=== PATIENT | female | born 1975 | race Caucasian/White ===

== ENCOUNTER 2017-05-13 18:27 | Emergency (ER) | payer OTHER ==
[2017-05-13 18:39] VITALS: BP 167/107; PULSE 94; TEMP 99.1; BMI 30.1
--- NOTE | 2017-05-13 18:41 | PDOC ---
Rapid Medical Evaluation Time Seen by Provider: 05/13/17 18:36 Medical Evaluation: Allergies Allergy/AdvReac Type Severity Reaction Status Date / Time Pork/Porcine Containing Allergy Swelling Verified 05/14/15 10:46 Products 05/13/17 18:36 I have performed a brief in-person evaluation of this patient. The patient presents with a chief complaint of: pain L flank down to vagina, vaginal bleeding since thursday, vomiting, hx stones, denies pain with urination Pertinent physical exam findings: L cva tenderness I have ordered the following: Upreg, UA, Ucx The patient will proceed to the ED for further evaluation. Discharge Disposition - Diagnosis Flank pain - Referrals - Patient Instructions - Post Discharge Activity
--- NOTE | 2017-05-13 20:32 | PDOC ---
History of Present Illness - General Chief Complaint: Vaginal Bleeding Stated Complaint: VAGINAL BLEEDING Time Seen by Provider: 05/13/17 18:36 History Source: Patient - History of Present Illness Initial Comments: 05/13/17 21:02 42 year old c/o intermittent left flank pain x 1 day. denies abdominal painmild nausea reported. no vomiting. history of kidney stones. patient also reported that she has her menstrual period now with occasional cramps. Past History - Past Medical History Allergies/Adverse Reactions: Allergies Allergy/AdvReac Type Severity Reaction Status Date / Time Pork/Porcine Containing Allergy Swelling Verified 05/13/17 18:39 Products Home Medications: Ambulatory Orders Albuterol Sulfate Inhaler - [Ventolin HFA Inhaler -] 1 - 2 inh PO Q4H #1 inhaler 05/14/15 Azithromycin [Zithromax 250mg Tablets -] 250 mg PO UTDICT #6 tab 05/14/15 Promethazine HCl [Phenergan Plain 6.25 MG/5 ML -] 5 ml PO TID #60 ml 05/14/15 Sulfamethoxazole/Trimethoprim [Bactrim Ds -] 1 tab PO BID #14 tablet 05/13/17 Asthma: Yes COPD: No Diabetes: Yes - Surgical History Abdominal Surgery: Yes - Suicide/Smoking/Psychosocial Hx Smoking History: Never smoked Hx Alcohol Use: Yes (SOCIAL) Drug/Substance Use Hx: No Substance Use Type: None *Physical Exam - Vital Signs Last Vital Signs Temp Pulse Resp BP Pulse Ox 99.1 F 94 H 20 167/107 100 05/13/17 18:36 05/13/17 18:36 05/13/17 18:36 05/13/17 18:36 05/13/17 18:36 - Physical Exam General Appearance: Yes: Appropriately Dressed Respiratory/Chest: positive: Lungs Clear, Normal Breath Sounds Gastrointestinal/Abdominal: positive: Normal Bowel Sounds, Soft Musculoskeletal: positive: CVA Tenderness (L) Extremity: positive: Normal Capillary Refill, Normal Inspection, Normal Range of Motion Integumentary: positive: Normal Color, Dry, Warm Neurologic: positive: Fully Oriented, Alert, Normal Mood/Affect ED Treatment Course - LABORATORY CBC & Chemistry Diagram: 05/13/17 21:14 05/13/17 21:14 Progress Note - Progress Note Progress Note: A: pyelonephritis P; CBC CMP UA: UCX CTAP: *DC/Admit/Observation/Transfer Diagnosis at time of Disposition: Flank pain, Pyelonephritis - Discharge Dispostion Disposition: HOME - Prescriptions Prescriptions: Sulfamethoxazole/Trimethoprim [Bactrim Ds -] 1 tab PO BID #14 tablet - Referrals - Patient Instructions Printed Discharge Instructions: DI for Kidney Infection Additional Instructions: drink plenty of fluids take bactrim as prescribed, follow up with your doctor as soon as possible. return to the ER if symptoms worsen. - Post Discharge Activity
[2017-05-13 20:36] LABS: URINE APPEARANCE CLOUDY; URINE BILIRUBIN NEGATIVE (NEGATIVE); URINE BLOOD 3+ (NEGATIVE); URINE COLOR YELLOW; URINE GLUCOSE (UA) NEGATIVE (NEGATIVE); URINE KETONE NEGATIVE (NEGATIVE); URINE LEUK ESTERASE TRACE (NEGATIVE); URINE NITRITE NEGATIVE (NEGATIVE); URINE UROBILINOGEN NEGATIVE mg/dL (0.2-1.0)
[2017-05-13 20:46] LABS: URINE PROTEIN 1+ (NEGATIVE)
[2017-05-13 20:48] LABS: EPI CELLS RARE /HPF (FEW); URINE MUCUS RARE
[2017-05-13 20:55] LABS: HCG,QUALITATIVE URINE NEGATIVE
[2017-05-13 21:30] LABS: BASO % 0.9 % (0-2.0); EOS % 2.2 % (0-4.5); HEMATOCRIT 38.2 % (32.4-45.2); HEMOGLOBIN 12.2 GM/dL (10.7-15.3); LYMPH % 28.4 % (8-40); MCH 25.4 pg (25.7-33.7); MCHC 32.1 g/dl (32.0-36.0); MEAN CELL VOLUME 79.2 fl (80-96); MEAN PLT VOLUME 7.7 fl (7.5-11.1); MONO % 6.8 % (3.8-10.2); NEUT % 61.7 % (42.8-82.8); PLATELET COUNT 317 K/MM3 (134-434); RBC 4.82 M/mm3 (3.60-5.2); RDW 15.9 % (11.6-15.6); WHITE BLOOD COUNT 8.3 K/mm3 (4.0-10.0)
[2017-05-13 22:00] LABS: ALBUMIN 3.8 g/dl (3.4-5.0); ANION GAP 6 (8-16); BILIRUBIN,TOTAL 0.3 mg/dL (0.2-1.0); BLOOD UREA NITROGEN 7 mg/dL (7-18); CALCIUM 9.2 mg/dL (8.5-10.1); CHLORIDE 106 mmol/L (98-107); CO2 27 mmol/L (21-32); CREATININE 0.7 mg/dL (0.55-1.02); GLUCOSE,RANDOM 109 mg/dL (74-106); POTASSIUM 4.7 mmol/L (3.5-5.1); SGOT/AST 20 U/L (15-37); SGPT/ALT 25 U/L (12-78); SODIUM 139 mmol/L (136-145); TOT PROT 7.9 g/dl (6.4-8.2)
[2017-05-13 22:01] LABS: ALK PHOS 74 U/L (45-117)
[2017-05-13] MEDS ORDERED: SULFAMETHOXAZOLE/TRIMETHOPRIM 800MG/160MG D.S. TABLET PO ONE (23:35)
== END 2017-05-14 01:00 | disposition home or self-care (01) ==
LOC: JER 18:27
DX: N12 Tubulo-interstitial nephritis, not specified as acute or chronic (principal); Z87.442 Personal history of urinary calculi
CPT/HCPCS: 36415; 74176; 80053; 81003; 81015; 84703; 85025; 87086; 99281-25

== ENCOUNTER 2020-05-13 09:20 | Emergency (ER) | payer OTHER ==
[2020-05-13 09:25] VITALS: BMI 31.8
[2020-05-13 10:38] LABS: CHLORIDE 106 mmol/L (98-107); SODIUM 138 mmol/L (136-145)
[2020-05-13 10:40] LABS: ALBUMIN 3.3 g/dl (3.4-5.0); ANION GAP 3 MMOL/L (8-16); CALCIUM 8.8 mg/dL (8.5-10.1); CO2 29 mmol/L (21-32); GLUCOSE,RANDOM 102 mg/dL (74-106)
[2020-05-13 10:41] LABS: BLOOD UREA NITROGEN 7.3 mg/dL (7-18)
[2020-05-13 10:43] LABS: CREATININE 0.7 mg/dL (0.55-1.3); SGPT/ALT 25 U/L (13-61)
[2020-05-13 10:44] LABS: SGOT/AST 19 U/L (15-37)
[2020-05-13 10:45] LABS: BILIRUBIN,TOTAL 0.3 mg/dL (0.2-1)
[2020-05-13 10:46] LABS: ALK PHOS 72 U/L (45-117)
[2020-05-13 10:49] LABS: BASO % 1.1 % (0-2.0); EOS % 3.4 % (0-4.5); HEMATOCRIT 35.6 % (32.4-45.2); HEMOGLOBIN 11.7 GM/dL (10.7-15.3); LYMPH % 27.1 % (8-40); MCH 25.7 pg (25.7-33.7); MCHC 32.9 g/dl (32.0-36.0); MEAN CELL VOLUME 78.1 fl (80-96); MEAN PLT VOLUME 7.8 fl (7.5-11.1); MONO % 7.5 % (3.8-10.2); NEUT % 60.9 % (42.8-82.8); PLATELET COUNT 327 K/MM3 (134-434); RBC 4.55 M/mm3 (3.60-5.2); RDW 17.8 % (11.6-15.6); WHITE BLOOD COUNT 7.5 K/mm3 (4.0-10.0)
[2020-05-13 13:34] VITALS: BP 128/79; PULSE 72; TEMP 98
== END 2020-05-13 13:36 | disposition home or self-care (01) ==
LOC: JER 09:20
DX: J40 Bronchitis, not specified as acute or chronic (principal)
CPT/HCPCS: 36415; 71046-TC-FY; 80053; 82550; 82553; 84484; 85025; 93005; 93010; 99284-25; C9803; U0003

== ENCOUNTER 2020-07-17 06:48 | Emergency (ER) | payer OTHER ==
[2020-07-17] MEDS ORDERED: DIPHTH,PERTUSS(ACELL),TET 0.5 ML DISP.SYRIN IM ONE (07:23)
[2020-07-17 07:30] VITALS: BP 131/82; PULSE 97; TEMP 100; BMI 29.8
== END 2020-07-17 08:00 | disposition home or self-care (01) ==
LOC: JER 06:48
DX: S62.514A Nondisplaced fracture of proximal phalanx of right thumb, initial encounter for closed fracture (principal)
CPT/HCPCS: 73130-TC-RT-FY; 99283-25

== ENCOUNTER 2021-04-16 09:47 | Emergency (ER) | payer OTHER ==
[2021-04-16 10:35] VITALS: BP 143/87; PULSE 84; TEMP 98.8; BMI 32.8
== END 2021-04-16 11:19 | disposition home or self-care (01) ==
LOC: JERFT 09:47
DX: L03.115 Cellulitis of right lower limb (principal)
CPT/HCPCS: 99283-25

== ENCOUNTER 2021-04-17 14:07 | Emergency (ER) | payer OTHER ==
[2021-04-17 14:37] VITALS: BP 143/78; PULSE 95; TEMP 98.2; BMI 32.8
== END 2021-04-17 14:52 | disposition home or self-care (01) ==
LOC: JERFT 14:07
DX: L03.115 Cellulitis of right lower limb (principal)
CPT/HCPCS: 99281-25

== ENCOUNTER 2021-07-09 08:41 | Emergency (ER) | payer OTHER ==
[2021-07-09 09:07] VITALS: BP 116/71; PULSE 90; TEMP 99.4; BMI 31.8
[2021-07-09] MEDS ORDERED: IBUPROFEN 600 MG TABLET (FP) PO ONE (10:00)
[2021-07-09 10:26] LABS: BASO % 0.5 % (0-2.0); EOS % 0.1 % (0-4.5); HEMATOCRIT 43.4 % (32.4-45.2); HEMOGLOBIN 14.8 GM/dL (10.7-15.3); LYMPH % 8.6 % (8-40); MCH 26.4 pg (25.7-33.7); MCHC 34.2 g/dl (32.0-36.0); MEAN CELL VOLUME 77.1 fl (80-96); MEAN PLT VOLUME 7.9 fl (7.5-11.1); MONO % 6.7 % (3.8-10.2); NEUT % 84.1 % (42.8-82.8); PLATELET COUNT 306 10^3/uL (134-434); RBC 5.62 M/mm3 (3.60-5.2); RDW 17.1 % (11.6-15.6); WHITE BLOOD COUNT 12.6 K/mm3 (4.0-10.0)
[2021-07-09 10:55] LABS: CALCIUM 9.9 mg/dL (8.5-10.1)
[2021-07-09 10:56] LABS: BLOOD UREA NITROGEN 5.8 mg/dL (7-18)
[2021-07-09 10:59] LABS: CREATININE 0.9 mg/dL (0.55-1.3)
[2021-07-09 11:01] LABS: BILIRUBIN,TOTAL 0.8 mg/dL (0.2-1); TOT PROT 8.5 g/dl (6.4-8.2)
[2021-07-09 11:20] LABS: EPI CELLS 8 /uL (0-25.1); HYALINE CASTS 16 /uL (0-3.1); PH,URINE 6.5 (5.0-8.0); URINE APPEARANCE CLOUDY; URINE BACTERIA >9,000 /uL (0-1359); URINE BILIRUBIN NEGATIVE (NEGATIVE); URINE COLOR YELLOW; URINE GLUCOSE (UA) 1+ (NEGATIVE); URINE KETONE 1+ (NEGATIVE); URINE LEUK ESTERASE 2+ (NEGATIVE); URINE NITRITE POSITIVE (NEGATIVE); URINE PROTEIN 1+ (NEGATIVE); URINE RBC 28 /uL (0-23.9); URINE WBC 498 /uL (0-25.8)
== END 2021-07-09 11:33 | disposition home or self-care (01) ==
LOC: JER 08:41
DX: N30.00 Acute cystitis without hematuria (principal)
CPT/HCPCS: 36415; 80053; 81003; 85025; 87086; 87186; 99283-25

== ENCOUNTER 2022-08-17 09:14 | Emergency (ER) | payer OTHER ==
[2022-08-17 09:20] VITALS: BP 145/98; PULSE 95; RESP 18; TEMP 98.6; BMI 31.8
[2022-08-17] MEDS ORDERED: IBUPROFEN 400 MG TABLET (FP) PO ONE ×2 (09:48→09:58)
[2022-08-17 11:29] LABS: URINE APPEARANCE CLEAR; URINE BILIRUBIN NEGATIVE (NEGATIVE); URINE COLOR YELLOW; URINE GLUCOSE (UA) 3+ (NEGATIVE); URINE KETONE NEGATIVE (NEGATIVE); URINE LEUK ESTERASE NEGATIVE (NEGATIVE); URINE NITRITE POSITIVE (NEGATIVE); URINE PROTEIN NEGATIVE (NEGATIVE); URINE UROBILINOGEN 0.2 mg/dL (0.2-1.0)
[2022-08-17 11:55] LABS: EPI CELLS 31.4 /uL (0-25.1); URINE RBC 14.3 /uL (0-23.9); URINE WBC MODERATE /uL (0-25.8)
[2022-08-17 11:56] LABS: URINE BACTERIA MANY /uL (0-1359)
== END 2022-08-17 12:53 | disposition home or self-care (01) ==
LOC: JER 09:14
DX: M79.671 Pain in right foot (principal)
CPT/HCPCS: 81003; 82962; 84703; 87086; 87186; 99283-25